=== PATIENT | male | born 1990 | race Caucasian/White ===

== ENCOUNTER → 2016-07-19 | Outpatient (CLI) | payer BC ==
--- NOTE | 2016-07-19 16:19 | Diagnostic Imaging Report ---
PROCEDURE: MRI right joint lower extremity without contrast. TECHNIQUE: Multiplanar, multisequence non contrast-enhanced MRI of the right lower extremity was accomplished. INDICATION: Injured the right knee playing basketball. Pain. FINDINGS: The cruciate ligaments are intact. There is a nondisplaced tear of the posterior horn of the medial meniscus. The lateral meniscus is intact. The collateral ligaments are normal. There is no significant joint effusion. There is a small popliteal cyst. There is no acute bony abnormality. IMPRESSION: There is a nondisplaced tear of the posterior horn of the medial meniscus. There is a small popliteal cyst which measures approximately 1 x 1 x 3 cm. Dictated by: Dictated on workstation # [id number]
== END ==
LOC: RAD 15:28
PROVIDERS: ATTEND Nurse Practitioner
DX: S83.241A Other tear of medial meniscus, current injury, right knee, initial encounter (principal); X58.XXXA Exposure to other specified factors, initial encounter; Y99.8 Other external cause status
CPT/HCPCS: 73721